=== PATIENT | female | born 1935 | race Caucasian/White ===

== ENCOUNTER → 2016-10-24 | Outpatient (CLI) | payer MEDICARE, OTHER ==
--- NOTE | 2016-10-24 17:11 | RADRPT ---
PROCEDURE: XR Knees. CLINICAL INDICATION: Bilateral knee pain. TECHNIQUE: Total of six views. Frontal, oblique, and lateral views of both knees. COMPARISON: No prior study is available for comparison. FINDINGS: There is no fracture or dislocation. The soft tissues are normal. There are degenerative changes with osteophytes arising from all 3 joint compartment margins bilater ally. There is joint space narrowing involving all 3 joint compartments bilaterally. There is bila teral chondrocalcinosis. There is no lytic or blastic lesion. There is no radiopaque foreign body. IMPRESSION: 1. Moderate degenerative changes of both knees. RPTAT: QQ .Malcolm El MD, MD Date Time Electronically viewed and signed by .Malcolm El MD, MD on 10/24/2016 17:11 .R/
--- NOTE | 2016-10-25 10:45 | HKNOTE ---
DATE OF SERVICE: 10/24/2016 MAIN COMPLAINT: Pain in both knees. HISTORY OF MAIN COMPLAINT: The patient has severe degenerative osteoarthritis of both knees. The p atient recently had chronic bronchial pneumonia and was put on antibiotics and a Medrol Dosepak. She indicates that she is "not a suitable candidate for any kind of surgery." Her sweat box attendant is Dr. Loi Dorsey. She has not been able to get in to see him recently because "he is too darn busy." The patient has a long list of medications. Please see the list included in the notes. These inclu de medications for constipation, dry eyes, glaucoma, anxiety, nerves and dyspepsia. For the remaind er of her history, please see the written and in the chart. PHYSICAL EXAMINATION GENERAL: The patient comes in with her . Note, that the two of them are fighting constantly throughout the time in our office over one thing or another. MUSCULOSKELETAL: The patient walks without a walking aid. Examination of both knees; remarkably, b oth knees have a full range of motion with minimal pain on forced flexion. Knee ligaments are intac t. No external sign of infection or inflammation. IMAGING: Plain x-rays of her knees obtained today show exceedingly severe degenerative osteoarthrit is of both knees. DISCUSSION: It is remarkable that this patient can even walk this degree of arthritis in her knees. She has fibromyalgia and says she has "a low pain tolerance." If she were younger and in good hea lth, I would not hesitate to recommend a knee replacement surgery. However, given the above, my rec ommendation would be to treat her conservatively with injections into her knee. Management under [facility] conditions, we gave injection of 2 mL of Kenalog and 3 mL of 2% lidocaine into each knee and s he will be seen again as necessary. Dictated By: EVELIO GROSSMAN/JENNY Conf#: [id number] DID#: [id number]
== END | disposition home or self-care (01) ==
LOC: HKI 15:09
DX: M17.0 Bilateral primary osteoarthritis of knee (principal)
CPT/HCPCS: 20610; 73562; G0463; J3301